=== PATIENT | female | born 1985 | race Caucasian/White ===

== ENCOUNTER 2018-09-03 06:49 | Day surgery (SDC) | payer OTHER ==
[~2018-09-03 06:49] MED LIST: CEFAZOLIN 2 GM/50 ML (PMX) 50 ML IVPB; SOD CHLORIDE 0.9% 1,000 ML IV
[2018-09-03] MEDS ORDERED: LIDOCAINE 2% (SDV) 5 ML INJ (07:00)
[2018-09-03 07:39] LABS: ADD MAN DIFF? NO
[2018-09-03 07:43] LABS: BASOPHILS % 0.5 % (0.0-2.0); EOSINOPHILS # 0.1 10^3/ul (0.0-0.5); EOSINOPHILS % 2.6 % (0.0-7.0); HEMATOCRIT 38.6 % (37.0-47.0); HEMOGLOBIN 12.9 g/dl (12.0-16.0); LYMPHOCYTES # 1.5 10^3/ul (0.8-2.9); LYMPHOCYTES % 34.3 % (15.0-51.0); MEAN CORPUSCULAR HEMOGLOBIN 31.1 pg (29.0-33.0); MEAN CORPUSCULAR HGB CONC 33.4 g/dl (32.0-37.0); MEAN PLATELET VOLUME 8.6 fl (7.4-10.4); MONOCYTE # 0.5 10^3/ul (0.3-0.9); MONOCYTES % 10.6 % (0.0-11.0); NEUTROPHIL # 2.2 10^3/ul (1.6-7.5); NEUTROPHILS % 51.8 % (39.0-77.0); PLATELET COUNT 264 10^3/UL (140-415); RED BLOOD COUNT 4.15 10^6/ul (4.20-5.40); RED CELL DISTRIBUTION WIDTH 12.4 % (11.5-14.5)
[2018-09-03 07:43] LABS: WHITE BLOOD COUNT 4.2 10^3/ul (4.8-10.8)
[2018-09-03 07:53] LABS: HOLD TRANSMISSIONS 1
[2018-09-03 08:04] LABS: INR 1.05; PARTIAL THROMBOPLASTIN TIME 33.4 Sec (23.0-35.0); PROTIME 13.8 Sec (11.9-14.9); PT RATIO 1.1
[2018-09-03 08:05] LABS: ALANINE AMINOTRANSFERASE 33 IU/L (13-69); ALBUMIN 4.6 g/dl (3.3-4.9); ALBUMIN/GLOBULIN RATIO 1.35; ALKALINE PHOSPHATASE 63 IU/L (42-121); ANION GAP 11 (5-13); ASPARTATE AMINO TRANSFERASE 34 IU/L (15-46); BILIRUBIN,INDIRECT 0.4 mg/dl (0-1.1); BILIRUBIN,TOTAL 0.4 mg/dl (0.2-1.3); BLOOD UREA NITROGEN 18 mg/dl (7-20); CALCIUM 9.4 mg/dl (8.4-10.2); CARBON DIOXIDE 29 mmol/L (21-31); CHLORIDE 102 mmol/L (97-110); CREATININE 0.64 mg/dl (0.44-1.00); Estimated GFR > 60 mL/min (>60); GLUCOSE 94 mg/dl (70-220); POTASSIUM 4.5 mmol/L (3.5-5.1); SODIUM 142 mmol/L (135-144)
[2018-09-03] MEDS ORDERED: CEFAZOLIN 1 GM INJ (08:10)
[2018-09-03] MEDS ORDERED: FENTAnyl 50 MCG/ML VIAL (08:10)
[2018-09-03] MEDS ORDERED: MIDAZOLAM 1 MG/ML 2 ML INJ (08:10)
[2018-09-03] MEDS ORDERED: PROPOFOL 20 ML (08:10)
[2018-09-03] MEDS ORDERED: ONDANSETRON 4 MG INJ (08:10)
[2018-09-03] MEDS ORDERED: hydrALAzine 20 MG INJ IV (08:30)
[2018-09-03] MEDS ORDERED: MIDAZOLAM 1 MG/ML 2 ML INJ IV (08:30)
[2018-09-03] MEDS ORDERED: ALBUTEROL 0.083% (NEB) 2.5 MG/3 ML AMP HHN (08:30)
[2018-09-03] MEDS ORDERED: TRIMETHOBENZAMIDE 100 MG/ML VIAL IM (08:30)
[2018-09-03] MEDS ORDERED: OXYCODONE/ACETAMINOPHEN (5/325) TAB PO ×2 (08:30)
[2018-09-03] MEDS ORDERED: LABETALOL HCL 20MG INJ IV (08:30)
[2018-09-03] MEDS ORDERED: MEPERIDINE 25 MG INJ IV (08:30)
[2018-09-03] MEDS ORDERED: FENTAnyl 50 MCG/ML VIAL IV ×3 (08:30)
[2018-09-03] MEDS ORDERED: EPHEDrine SULFATE 50 MG/5 ML SYG IV (08:30)
[2018-09-03] MEDS ORDERED: HYDROmorphONE 1 MG/5 ML IV SYRINGE IV ×3 (08:30)
[2018-09-03] MEDS ORDERED: IPRATROPIUM (NEB) 0.5 MG/2.5 ML AMP HHN (08:30)
[2018-09-03] MEDS ORDERED: ONDANSETRON 4 MG INJ IV (08:30)
[2018-09-03] MEDS ORDERED: DIPHENHYDRAMINE 50 MG INJ IV (08:30)
[2018-09-03] MEDS: BUPIVACAINE 0.25% (MPF) 30 ML INJ (08:48)
[2018-09-03] MEDS: LIDOCAINE 1% (MPF) 30 ML INJ (08:48)
[2018-09-03] MEDS ORDERED: HYDROCODONE/APAP (5/325) TAB PO (09:00)
== END 2018-09-03 10:12 | disposition home or self-care (01) ==
LOC: SDS 06:49
DX: D36.0 Benign neoplasm of lymph nodes (principal)
CPT/HCPCS: 14040; 80053; 85025; 85610; 85730; 88307